=== PATIENT | female | born 1990 | race African-American/Black ===

== ENCOUNTER 2021-01-25 15:03 | Emergency (ER) | payer SELFPAY ==
[~2021-01-25] VITALS: Ht 167.6 cm; Wt 81.6 kg
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
[2021-01-25] MEDS ORDERED: IBUPROFEN 600 MG TABLET ONE (15:49)
[2021-01-25] MEDS ORDERED: HYDROCODONE/APAP 5/325MG TABLET ONE (15:49)
[2021-01-25] MEDS ORDERED: HYDROCODONE/APAP 5/325MG TABLET PO ONE (16:00)
[2021-01-25] MEDS ORDERED: IBUPROFEN 600 MG TABLET PO ONE (16:00)
[2021-01-25] MEDS ORDERED: HYDR-3972 PO (16:23)
[2021-01-25] MEDS ORDERED: IBUP-1957 PO (16:23)
[2021-01-25 16:39] VITALS: BP 118/70
--- NOTE | 2021-01-25 16:40 | NUR ---
patient condition stable d/c home with instructions after care reviewed understood left er via self ambulatory with steady gait.
== END 2021-01-25 16:41 | disposition home or self-care (01) ==
LOC: ER 15:08
DX: S02.2XXA Fracture of nasal bones, initial encounter for closed fracture (principal); S09.8XXA Other specified injuries of head, initial encounter; Z59.0 Homelessness; Y04.0XXA Assault by unarmed brawl or fight, initial encounter; Y93.89 Activity, other specified; Y92.89 Other specified places as the place of occurrence of the external cause; Y99.8 Other external cause status
CPT/HCPCS: 70450-TC; 70486-TC